=== PATIENT | female | born 1970 | race Caucasian/White ===

== ENCOUNTER 2019-02-03 09:55 | Inpatient (IN) | payer MEDICAID, OTHER ==
[~2019-02-03] VITALS: Ht 162.6 cm; Wt 53.8 kg
[2019-02-03] MEDS ORDERED: HYDROmorphONE 1 MG/ML SYG IV STA ×2 (10:08→10:59)
[2019-02-03] MEDS ORDERED: SOD CHLORIDE 0.9% 1,000 ML IV STA (10:08)
[2019-02-03] MEDS ORDERED: ONDANSETRON 4 MG INJ IV STA ×3 (10:08→10:59)
--- NOTE | 2019-02-03 10:17 | ERD ---
ER Documentation Chief Complaint Chief Complaint n/v/d, sanchez, actively vomit, hr 120-150 weak&thready on palp, uto bp HPI This is a 49-year-old female who is complaining of 2 days of right mid abdominal pain with nausea vomiting diarrhea. There is no blood in diarrhea or vomit. Pain is crampy. Sometimes sharp. She says she has equal amounts of vomiting and diarrhea. She says she has had intractable vomiting today. Denies any possible bad food exposure or others at home with the same symptoms. ROS All systems reviewed and are negative except as per history of present illness. Medications Home Meds Reported Medications Levetiracetam* (Keppra*) 1,000 Mg Tablet, 1000 MG PO BID, TAB 02/03/19 Allergies Allergies: Coded Allergies: metoclopramide (Verified Allergy, Unknown, 02/03/19) prochlorperazine (Verified Allergy, Unknown, 02/03/19) FmHx Family History: No coronary disease Physical Exam Vitals Vital Signs Date Temp Pulse Resp B/P (MAP) Pulse Ox O2 O2 Flow FiO2 Time Delivery Rate 02/03/19 74 20 157/146 100 Room Air 10:11 (150) 02/03/19 97.4 120 24 98 09:56 Physical Exam Const: Well-developed, well-nourished Head: Atraumatic, normocephalic Eyes: Normal Conjunctiva, PERRLA, EOMI, normal sclera, no nystagmus ENT: Normal External Ears, Nose and Mouth, moist mucus membranes. Neck: Full range of motion. No meningismus, no lymphadenopathy. Resp: Clear to auscultation bilaterally, no wheezing, rhonchi, rales Cardio: Regular rate and rhythm, no murmurs, S1 S2 present Abd: Soft, mild to moderate right mid abdominal tenderness, non distended. Normal bowel sounds, no guarding or rebound, no pulsitile abdominal masses or bruits Skin: No petechiae or rashes, no ecchymosis , no maculopapular rash Back: No midline or flank tenderness Ext: No cyanosis, or edema, FROM x 4, normal inspection, neurovascularly intact x 4 Neur: Awake and alert, STR 5/5 x 4, sensation intact x 4, no focal findings, cerebellum intact Psych: Normal Mood and Affect Result Diagram: 02/03/19 1014 02/03/19 1014 Results 24 hrs Laboratory Tests Test 02/03/19 10:14 White Blood Count 7.1 10^3/ul Red Blood Count 4.35 10^6/ul Hemoglobin 13.6 g/dl Hematocrit 40.5 % Mean Corpuscular Volume 93.1 fl Mean Corpuscular Hemoglobin 31.3 pg Mean Corpuscular Hemoglobin Concent 33.6 g/dl Red Cell Distribution Width 13.8 % Platelet Count 346 10^3/UL Mean Platelet Volume 9.7 fl Immature Granulocytes % 0.300 % Neutrophils % 62.3 % Lymphocytes % 29.3 % Monocytes % 5.8 % Eosinophils % 1.0 % Basophils % 1.3 % Nucleated Red Blood Cells % 0.0 /100WBC Immature Granulocytes # 0.020 10^3/ul Neutrophils # 4.4 10^3/ul Lymphocytes # 2.1 10^3/ul Monocytes # 0.4 10^3/ul Eosinophils # 0.1 10^3/ul Basophils # 0.1 10^3/ul Nucleated Red Blood Cells # 0.0 10^3/ul Sodium Level 143 mmol/L Potassium Level 3.9 mmol/L Chloride Level 104 mmol/L Carbon Dioxide Level 25 mmol/L Anion Gap 14 Blood Urea Nitrogen 16 mg/dl Creatinine 0.60 mg/dl Est Glomerular Filtrat Rate mL/min > 60 mL/min Glucose Level 117 mg/dl Calcium Level 9.5 mg/dl Total Bilirubin 0.7 mg/dl Direct Bilirubin 0.00 mg/dl Indirect Bilirubin 0.7 mg/dl Aspartate Amino Transf (AST/SGOT) 33 IU/L Alanine Aminotransferase (ALT/SGPT) 31 IU/L Alkaline Phosphatase 58 IU/L Total Protein 7.9 g/dl Albumin 4.4 g/dl Globulin 3.50 g/dl Albumin/Globulin Ratio 1.25 Lipase 115 U/L Serum HCG, Qualitative NEGATIVE Current Medications Medications Dose Sig/Gricelda Start Time Status Last (Trade) Ordered Route PRN Stop Time Admin Dose Reason Admin Sodium 1,000 ml @ Q1H STAT 02/03/19 DC 02/03/19 Chloride 1,000 mls/hr IV 10:08 10:18 02/03/19 11:07 1 mg ONCE STAT 02/03/19 DC 02/03/19 Hydromorphone IV 10:08 10:18 HCl 02/03/19 10:10 (Dilaudid) Ondansetron 4 mg ONCE STAT 02/03/19 DC 02/03/19 HCl (Zofran IV 10:08 10:17 Inj) 02/03/19 10:10 Ondansetron 4 mg ONCE STAT 02/03/19 DC 02/03/19 HCl (Zofran IV 10:52 10:56 Inj) 02/03/19 10:54 1 mg ONCE STAT 02/03/19 DC 02/03/19 Hydromorphone IV 10:59 11:16 HCl 02/03/19 11:00 (Dilaudid) Ondansetron 4 mg ONCE STAT 02/03/19 DC HCl (Zofran IV 10:59 Inj) 02/03/19 11:00 IV Flush 10 ml STK-MED 02/03/19 DC 02/03/19 (NS 10 ml) ONCE .ROUTE 11:12 11:29 02/03/19 11:13 Sodium 100 ml @ ud STK-MED 02/03/19 DC 02/03/19 Chloride ONCE .ROUTE 11:12 11:29 02/03/19 11:13 Iohexol 150 ml STK-MED 02/03/19 DC 02/03/19 (Omnipaque ONCE .ROUTE 11:12 11:29 300mg/ ml) 02/03/19 11:13 Procedures/[place] [address] Radiology Main Line: [phone] DIAGNOSTIC IMAGING REPORT Patient: AZEEM LOPEZ : 1970 Age: 49 Sex: F MR #: [id number] DOS: 02/03/19 1008 Ordering MD: MOHINI MCPHERSON DO Location: E/R Room/Bed: PROCEDURE: CT abdomen and pelvis with contrast. CLINICAL INDICATION: abdominal pain TECHNIQUE: CT scan of the abdomen and pelvis with contrast was performed on a multi-slice CT scanner . The patient was scanned after administration of 90 cc of Omnipaque-300 intravenous contrast. Sagittal and coronal reformatted images were obtained from the axial source images. One or more of the following dose reduction techniques were used: - Automated exposure control. - Adjustment of the mA and/or kV according to patient size. - Use of iterative reconstruction technique. DICOM images are available DLP 265.9 mGycm. CTDIvol 5.75 mGy COMPARISON: None. FINDINGS: Lower thorax:The lung bases are clear. Liver: There is uniform enhancement of the liver with no focal lesion. The portal vein is intact without thrombus. Biliary: The gallbladder is unremarkable without inflammation. No biliary dilatation. Pancreas: Homogeneous density and enhancement of the pancreas without visible focal lesion or cystic abnormality. There is no pancreatic ductal dilatation. Spleen: Unremarkable without enlargement or focal lesion. Adrenal Glands: The adrenal glands are within normal limits without mass. Urinary: The kidneys are symmetric in size bilaterally with symmetric enhancement. There are no visible renal or ureteral stones. There is no hydronephrosis. Gastrointestinal: The colon is decompressed with borderline colonic wall thick ening without obstruction or appendicitis. Lymph nodes: There are no enlarged lymph nodes. Vascular: There is a retroaortic left renal vein. Trace aortic atherosclerotic plaque is present. Peritoneum/mesentery: No free fluid or free air. Reproductive organs: The pelvic organs are not visualized. Musculoskeletal: Degenerative changes are seen in the lumbar spine with no acute osseous abnormality Other: None IMPRESSION: Mild colonic wall thickening could represent mild colitis versus sequelae of decompression of the colon. There is no obstruction or appendicitis. Mild atherosclerotic changes. RPTAT: AA .Janna Ace MD, MD Date Time Electronically viewed and signed by .Janna Ace MD, MD on 02/03/2019 11:40 .J/ CC: MOHINI MCPHERSON DO [id number] The patient tells me she has cyclical vomiting once a month is very severe and is hospitalized frequently. The patient is continuing to dry heave here despite pain medication and Zofran. She said if she has Reglan or Compazine she is reacting to it with dyspnea. I will admit her to hospital for IV fluids and pain and nausea control Departure Diagnosis: Primary Impression: Intractable vomiting Vomiting type: cyclical vomiting Nausea presence: with nausea Qualified Codes: G43.A1 - Cyclical vomiting, intractable Condition: Stable MOHINI MCPHERSON DO Feb 03, 2019 10:17
[2019-02-03] MEDS ORDERED: IOHEXOL 300MG/ML 150 ML BTL ONE (11:12)
[2019-02-03] MEDS ORDERED: SOD CHLORIDE 0.9% 100 ML ONE (11:12)
[2019-02-03] MEDS ORDERED: LEVE100018 PO (11:48)
[2019-02-03] MEDS ORDERED: SOD CHLORIDE 0.9% 1,000 ML IV SCH (13:32)
[2019-02-03] MEDS ORDERED: ACETAMINOPHEN 325 MG TAB PO PRN ×2 (14:00→16:00)
[2019-02-03] MEDS ORDERED: ONDANSETRON 4 MG INJ IV PRN (14:00)
[2019-02-03 14:40] VITALS: Ht 162.6 cm; Wt 53.8 kg
--- NOTE | 2019-02-03 15:41 | HP ---
Date/Time of Note Date/Time of Note DATE: 02/03/19 TIME: 15:36 Assessment/Plan VTE Prophylaxis SCD applied (from Nsg): Yes Pharmacological prophylaxis: NA/contraindicated Pharm contraindication: low risk/ambulating Lines/Catheters IV Catheter Type (from Nrsg): Peripheral IV Urinary Cath still in place: No Assessment/Plan Hospital Course 1. Intractable nausea and vomiting likely secondary to viral gastroenteritis CT abdomen does show mild colonic wall thickening which could represent mild colitis versus sequelae of decompression of the colon Patient was exposed to granddaughter who was ill Supportive care with IV fluids and Zofran No evidence of sepsis and hence no indication for antibiotics 2. Epilepsy Continue Keppra Prophylaxis: SCDs Result Diagram: 02/03/19 1014 02/03/19 1014 Results 24hrs Laboratory Tests Test 02/03/19 10:14 White Blood Count 7.1 Red Blood Count 4.35 Hemoglobin 13.6 Hematocrit 40.5 Mean Corpuscular Volume 93.1 Mean Corpuscular Hemoglobin 31.3 Mean Corpuscular Hemoglobin Concent 33.6 Red Cell Distribution Width 13.8 Platelet Count 346 Mean Platelet Volume 9.7 Immature Granulocytes % 0.300 Neutrophils % 62.3 Lymphocytes % 29.3 Monocytes % 5.8 Eosinophils % 1.0 Basophils % 1.3 Nucleated Red Blood Cells % 0.0 Immature Granulocytes # 0.020 Neutrophils # 4.4 Lymphocytes # 2.1 Monocytes # 0.4 Eosinophils # 0.1 Basophils # 0.1 Nucleated Red Blood Cells # 0.0 Sodium Level 143 Potassium Level 3.9 Chloride Level 104 Carbon Dioxide Level 25 Anion Gap 14 H Blood Urea Nitrogen 16 Creatinine 0.60 Est Glomerular Filtrat Rate mL/min > 60 Glucose Level 117 Calcium Level 9.5 Total Bilirubin 0.7 Direct Bilirubin 0.00 Indirect Bilirubin 0.7 Aspartate Amino Transf (AST/SGOT) 33 Alanine Aminotransferase (ALT/SGPT) 31 Alkaline Phosphatase 58 Total Protein 7.9 Albumin 4.4 Globulin 3.50 H Albumin/Globulin Ratio 1.25 Lipase 115 Serum HCG, Qualitative NEGATIVE HPI/ROS Admit Date/Time Admit Date/Time Feb 03, 2019 at 13:33 Hx of Present Illness Patient is a 49-year-old female with a history of seizure disorder on Keppra as well as intermittent nausea and vomiting for the past year and a half. Patient states that she first had nausea vomiting 1 and 1/2 years ago and had an NG tube placed for several days and was told to follow-up with [facility] for further diagnostics but never did. Patient had done well since then but over the past 2 days reports worsening nausea vomiting as well as abdominal pain. Patient does report diarrhea as well as sick contact with her granddaughter, patient denies fever or chills. In the ER CT abdomen shows Mild colonic wall thickening which could represent mild colitis versus sequelae of decompression of the colon. There is no obstruction or appendicitis. Patient has no other complaints this time. ROS Constitutional: no complaints, improved Eyes: no complaints ENT: no complaints Respiratory: no complaints Cardiovascular: no complaints Gastrointestinal: pain, diarrhea, nausea, vomiting Genitourinary: no complaints Musculoskeletal: no complaints Skin: no complaints Neurologic: no complaints Endocrine: no complaints Lymphatic: no complaints Psychological: no complaints, nl mood/affect Immunologic: no complaints PMH/Family/Social Past Medical History Seizure disorder, history of nausea vomiting 1 and 1/2 years ago Medications Current Medications Sodium Chloride 1,000 ml @ 80 mls/hr [id number] IV ; Start 02/03/19 at 13:32; Stop 02/04/19 at 02:01 Coded Allergies: metoclopramide (Verified Allergy, Unknown, 02/03/19) prochlorperazine (Verified Allergy, Unknown, 02/03/19) Past Surgical History Fibroids status post hysterectomy Family History Significant Family History: no pertinent family hx Social History Alcohol Use: rarely Smoking Status: Never smoker Drug Use: none Exam/Review of Systems Vital Signs Vitals Vital Signs Date Temp Pulse Resp B/P (MAP) Pulse Ox O2 O2 Flow FiO2 Time Delivery Rate 02/03/19 91 18 130/85 99 Room Air 14:24 (100) 02/03/19 98.6 13:49 Exam Constitutional: alert, oriented Respiratory: clear to auscultation Cardiovascular: regular rate and rhythm Gastrointestinal: soft, tender; No distended Musculoskeletal: nl extremities to inspection ZORAN THORNTON Feb 03, 2019 15:41
[2019-02-03] MEDS ORDERED: NACL 0.9% 3 ML SYG IV SCH (16:00)
[2019-02-03] MEDS ORDERED: ZOLPIDEM 5 MG TAB PO PRN (16:00)
[2019-02-03 16:23] VITALS: BP 136/74; PULSE 89; RESP 20
[2019-02-03] MEDS: ONDANSETRON 4 MG INJ IV PRN ×2 (16:29→22:26)
[2019-02-03] MEDS: morphine 2 MG INJ IV PRN ×2 (16:29→20:25)
[2019-02-03] MEDS: 1/2 NS + KCL 20 MEQ 1,000 ML IV SCH (16:30)
[2019-02-03 19:33] VITALS: BP 133/76; PULSE 86; RESP 20
[2019-02-03] MEDS: LEVETIRACETAM 500 MG TAB PO SCH (22:26)
[2019-02-04] MEDS: morphine 2 MG INJ IV PRN ×6 (00:19→23:47)
[2019-02-04 02:00] VITALS: BP 127/73; PULSE 93; RESP 20
[2019-02-04] MEDS: 1/2 NS + KCL 20 MEQ 1,000 ML IV SCH ×3 (02:18→22:30)
[2019-02-04] MEDS: ONDANSETRON 4 MG INJ IV PRN ×3 (04:52→19:10)
[2019-02-04 08:07] VITALS: BP 138/75; PULSE 78; RESP 16
[2019-02-04] MEDS: LEVETIRACETAM 500 MG TAB PO SCH ×2 (08:55→21:04)
--- NOTE | 2019-02-04 12:49 | PN ---
Date/Time of Note Date/Time of Note DATE: 02/04/19 TIME: 12:48 Assessment/Plan VTE Prophylaxis Risk score (from Nsg)>0 risk: 1 Pharmacological prophylaxis: NA/contraindicated Pharm contraindication: low risk/ambulating Lines/Catheters IV Catheter Type (from Nrsg): Peripheral IV Urinary Cath still in place: No Assessment/Plan Hospital Course 1. Intractable nausea and vomiting likely secondary to viral gastroenteritis CT abdomen does show mild colonic wall thickening which could represent mild colitis versus sequelae of decompression of the colon Patient was exposed to granddaughter who was ill Supportive care with IV fluids and Zofran No evidence of sepsis and hence no indication for antibiotics Advance diet to soft 2. Epilepsy Continue Keppra Prophylaxis: SCDs DC planning: Advance diet, anticipate DC home tomorrow Result Diagram: 02/04/19 0508 02/04/19 0508 Results 24hrs Laboratory Tests Test 02/04/19 05:08 White Blood Count 5.8 Red Blood Count 3.70 L Hemoglobin 11.3 L Hematocrit 34.8 L Mean Corpuscular Volume 94.1 Mean Corpuscular Hemoglobin 30.5 Mean Corpuscular Hemoglobin Concent 32.5 Red Cell Distribution Width 14.0 Platelet Count 268 # Mean Platelet Volume 10.8 H Immature Granulocytes % 0.200 Neutrophils % 46.5 Lymphocytes % 42.3 Monocytes % 8.2 Eosinophils % 2.1 Basophils % 0.7 Nucleated Red Blood Cells % 0.0 Immature Granulocytes # 0.010 Neutrophils # 2.7 Lymphocytes # 2.4 Monocytes # 0.5 Eosinophils # 0.1 Basophils # 0.0 Nucleated Red Blood Cells # 0.0 Sodium Level 139 Potassium Level 3.5 Chloride Level 105 Carbon Dioxide Level 29 Anion Gap 5 # Blood Urea Nitrogen 5 #L Creatinine 0.64 Est Glomerular Filtrat Rate mL/min > 60 Glucose Level 94 Hemoglobin A1c 5.1 Calcium Level 9.1 Phosphorus Level 3.6 Magnesium Level 1.7 Subjective 24 Hr Interval Summary Gastrointestinal: pain, nausea Exam/Review of Systems Exam Vitals Vital Signs Date Temp Pulse Resp B/P (MAP) Pulse Ox O2 O2 Flow FiO2 Time Delivery Rate 02/04/19 98.3 78 16 138/75 99 08:07 (96) 02/04/19 Room Air 02:00 Intake and Output 02/03/19 02/03/19 02/04/19 1515:00 23:00 07:00 IntakeIntake Total 480 ml 1520 ml OutputOutput Total 100 ml BalanceBalance 480 ml 1420 ml Constitutional: alert, oriented Respiratory: clear to auscultation Cardiovascular: regular rate and rhythm Gastrointestinal: soft; No distended Musculoskeletal: nl extremities to inspection Results Results 24hrs Laboratory Tests Test 02/04/19 05:08 White Blood Count 5.8 Red Blood Count 3.70 L Hemoglobin 11.3 L Hematocrit 34.8 L Mean Corpuscular Volume 94.1 Mean Corpuscular Hemoglobin 30.5 Mean Corpuscular Hemoglobin Concent 32.5 Red Cell Distribution Width 14.0 Platelet Count 268 # Mean Platelet Volume 10.8 H Immature Granulocytes % 0.200 Neutrophils % 46.5 Lymphocytes % 42.3 Monocytes % 8.2 Eosinophils % 2.1 Basophils % 0.7 Nucleated Red Blood Cells % 0.0 Immature Granulocytes # 0.010 Neutrophils # 2.7 Lymphocytes # 2.4 Monocytes # 0.5 Eosinophils # 0.1 Basophils # 0.0 Nucleated Red Blood Cells # 0.0 Sodium Level 139 Potassium Level 3.5 Chloride Level 105 Carbon Dioxide Level 29 Anion Gap 5 # Blood Urea Nitrogen 5 #L Creatinine 0.64 Est Glomerular Filtrat Rate mL/min > 60 Glucose Level 94 Hemoglobin A1c 5.1 Calcium Level 9.1 Phosphorus Level 3.6 Magnesium Level 1.7 Medications Medication Current Medications Potassium Chloride/Sodium Chloride 1,000 ml @ 100 mls/hr Q10H IV Last ad ministered on 02/04/19at 02:18; Admin Dose 100 MLS/HR; Start 02/03/19 at 16:30 IV Flush (NS 3 ml) 3 ml PER PROTOCOL IV ; Start 02/03/19 at 16:00 Acetaminophen (Tylenol Tab) 650 mg Q6H PRN PO .PAIN 1-3 OR TEMP; Start 02/03/19 at 16:00 Acetaminophen/ Hydrocodone Bitart (Morris (5/325)) 1 tab Q6H PRN PO .MOD PAIN 4- 6; Start 02/03/19 at 16:00 Morphine Sulfate (morphine) 2 mg Q4H PRN IV .SEVERE PAIN 7-10 Last administered on 02/04/19at 08:56; Admin Dose 2 MG; Start 02/03/19 at 16:00 Zolpidem Tartrate (Ambien) 5 mg QHS PRN PO .INSOMNIA; Start 02/03/19 at 16:00 Levetiracetam (Keppra) 1,000 mg BID PO Last administered on 02/04/19at 08:55; Admin Dose 1,000 MG; Start 02/03/19 at 21:00 Ondansetron HCl (Zofran Inj) 4 mg Q4H PRN IV NAUSEA/VOMITING; Start 02/04/19 at 12:00 ZORAN THORNTON Feb 04, 2019 12:49
[2019-02-04 14:21] VITALS: BP 133/81; PULSE 91; RESP 18
--- NOTE | 2019-02-04 15:59 | QN ---
Documentation Comment As Physician Advisor I have reviewed the chart and have determined that as of today, this patient continues to receive medically necessary care required for the diagnosis and treatment of illness or injury. There has been no unreasonable delay in the rendering of medically necessary services, and this medically necessary care requires a length of stay expected to be greater than two midnights. Additional information gained during the stay now suggests this patient should have been classified as an inpatient at the time of admission, and I will change the status to inpatient to reflect that medical judgment. Besides the notes from the medical providers, the following information was used in this determination: Inability to tolerate oral intake persists, patient requiring IV fluids. Abdominal pain requiring narcotics, nausea and vomiting requiring medical intervention. Please call me at [phone] with questions. MONIQUE PARKS MD Feb 04, 2019 15:59
[2019-02-04 20:23] VITALS: BP 131/80; PULSE 98; RESP 16
[2019-02-05] MEDS: 1/2 NS + KCL 20 MEQ 1,000 ML IV SCH (01:35)
[2019-02-05 02:14] VITALS: BP 123/74; PULSE 103; RESP 17
[2019-02-05] MEDS: ONDANSETRON 4 MG INJ IV PRN ×3 (02:36→14:39)
[2019-02-05] MEDS: HYDROCODONE/APAP (5/325) TAB PO PRN ×3 (02:36→14:35)
[2019-02-05 07:22] VITALS: BP 137/77; PULSE 77; RESP 14
[2019-02-05] MEDS: LEVETIRACETAM 500 MG TAB PO SCH (08:49)
--- NOTE | 2019-02-05 12:09 | PDOCDIS ---
Discharge Instructions CONDITION [id number] Patient Condition: [id number] Good HOME CARE INSTRUCTIONS: [id number] Diet Instructions: [id number] Regular ACTIVITY: [id number] Activity Restrictions: [id number] No Restrictions FOLLOW UP/APPOINTMENTS Follow-up Plan FOLLOW UP WITH YOUR PCP IN 1-2 WEEKS ZORAN THORNTON Feb 05, 2019 12:09
--- NOTE | 2019-02-05 13:12 | DS ---
Date/Time of Note Date/Time of Note DATE: 02/05/19 TIME: 13:10 Discharge Summary Admission/Discharge Info Admit Date/Time Feb 03, 2019 at 15:57 Discharge Date/Time February 05, 2019 Discharge Diagnosis 1. Intractable nausea and vomiting likely secondary to viral gastroenteritis CT abdomen does show mild colonic wall thickening which could represent mild colitis versus sequelae of decompression of the colon Patient was exposed to granddaughter who was ill Status post supportive care with IV fluids and Zofran No evidence of sepsis and hence no indication for antibiotics Tolerating diet 2. Epilepsy Continue Keppra Patient Condition: Good Hospital Course Patient is a 49-year-old female with a history of seizure disorder on Keppra as well as intermittent nausea and vomiting for the past year and a half. Patient reports 2 days of worsening nausea vomiting as well as abdominal pain. Patient does report diarrhea as well as sick contact with her granddaughter, patient denies fever or chills. In the ER CT abdomen shows Mild colonic wall thickening which could represent mild colitis versus sequelae of decompression of the colon. Patient appears to have viral gastroenteritis, patient was treated with conservative care, diet was advanced and patient was able to tolerate p.o. diet. Patient was stable for DC, on the day of discharge patient vitals, labs and ph ysical exam are stable. Home Meds Reported Medications Levetiracetam* (Keppra*) 1,000 Mg Tablet, 1000 MG PO BID, TAB 02/03/19 Follow-up Plan FOLLOW UP WITH YOUR PCP IN 1-2 WEEKS Primary Care Provider Care Physician No Primary Time spent on discharge: > 30 minutes Pending Labs \ ZORAN THORNTON Feb 05, 2019 13:12
== END 2019-02-05 15:00 | disposition home or self-care (01) | DRG 392 ==
LOC: E/R 09:55 → 2NE 13:33 → OBSVTOIN 15:57 → 2NE 16:14
PROVIDERS: ADMIT Internal Medicine; ATTEND Internal Medicine
DX: A08.4 Viral intestinal infection, unspecified (principal); R11.2 Nausea with vomiting, unspecified; G40.909 Epilepsy, unspecified, not intractable, without status epilepticus
CPT/HCPCS: 36415; 74177; 80048; 80053; 83036; 83690; 83735; 84100; 84703; 85025; 87075; 96374; 96375; 96376; G0378; J1170; J2270; J2405; J3480; J7030; Q9967

== ENCOUNTER 2019-04-15 14:10 | Emergency (ER) | payer SELFPAY ==
[~2019-04-15] VITALS: Ht 152.4 cm; Wt 50.0 kg
[~2019-04-15 14:10] MED LIST: LEVE100018 PO; ONDA4TAB14 PO
[2019-04-15 14:15] VITALS: Ht 152.4 cm; Wt 50.0 kg
[2019-04-15] MEDS ORDERED: ACETAMINOPHEN 325 MG TAB PO STA (14:52)
[2019-04-15] MEDS ORDERED: ONDANSETRON 4 MG INJ IV STA (14:52)
[2019-04-15] MEDS ORDERED: SOD CHLORIDE 0.9% 1,000 ML IV STA ×2 (14:52→17:16)
[2019-04-15] MEDS ORDERED: LEVETIRACETAM 1000 MG (PMX) 100 ML IVPB STA (14:52)
[2019-04-15] MEDS ORDERED: KETOROLAC 30 MG INJ IV STA (17:16)
[2019-04-15] MEDS ORDERED: DIPHENHYDRAMINE 50 MG INJ IV STA (17:16)
[2019-04-15] MEDS ORDERED: predniSONE 20 MG TAB PO ONE (17:30)
[2019-04-15 18:57] VITALS: BP 125/73; PULSE 86; RESP 20
== END 2019-04-15 18:59 | disposition home or self-care (01) ==
LOC: E/R 14:10
DX: R56.9 Unspecified convulsions (principal); R11.2 Nausea with vomiting, unspecified; G47.00 Insomnia, unspecified
CPT/HCPCS: 36415; 70450; 80053; 80307; 81003; 82962; 84703; 85025; 96365; 96375; 99285; J1200; J1885; J1953; J2405; J7030; J7512